=== PATIENT | male | born 1935 | race Caucasian/White ===

== ENCOUNTER 2020-01-28 13:53 | Observation (INO) | payer MEDICARE, BC, SELFPAY ==
[2020-01-28] VITALS (18 sets, daily range): BP systolic 104–152; BP diastolic 62–93; PULSE 56–70; RESP 0–18; TEMP 36.8; O2SAT 96–100; BMI 32.8
--- NOTE | ~2020-01-28 | CT_ITS ---
EXAMINATION: CT brain wo con, CT cervical spine wo con EXAM DATE: 01/28/2020 14:51 (accession [id number]), 01/28/2020 14:52 (accession [id number]) INDICATION: Syncope. Head injury. Squamous cell cancer. TECHNIQUE: Spiral CT of the head was performed without contrast. Axial, coronal and sagittal images were reviewed. Spiral CT of the cervical spine was performed without contrast. Axial images were rev iewed. Coronal and sagittal reformatted images were also reviewed. The dose-length product (DLP) fo r this examination was 605.33 (accession [id number]), 487.79 (accession [id number]) mGy-cm. The exposure was tailored according to patient size, and iterative reconstruction (ASIR) was used as additional dose reduction technique. There is no prior study for comparison. FINDINGS: HEAD CT: There is no acute intraparenchymal hemorrhage. No evidence of intraparenchymal brain mass l esion. No evidence of acute infarction. There is mild periventricular and subcortical hypodensity, n onspecific but probably related to small vessel ischemic disease. There is mild to moderate promine nce of the sulci and ventricles related to cerebral atrophy. There is intracranial carotid arterios clerosis. There is no mass effect or midline shift. There is no obstructive hydrocephalus suspected . There are no extra-axial collections. There are no acute calvarial fractures. The orbits are unr emarkable. Possible small right posterior vertex scalp contusion. Left mastoid effusion. Punctate o ld left caudate head lacunar infarction. CERVICAL CT: There is no evidence of acute cervical fracture. The odontoid process is intact. Pre-d ens space is normal. Prevertebral soft tissue is normal. There are no soft tissue abnormalities familia ntified. There is no disc space widening or traumatic vertebral body subluxation suspected. There i s moderate disc disease at C5-6 and 6-7 with significant uncovertebral joint arthropathy. Significant left facet joint arthropathy at C4-5, right facet arthropathy at C2-3. A detailed level by level ev aluation of spondylosis can be added as addendum if requested. IMPRESSION: 1. No acute intracranial or cervical findings. 2. Possible small posterior vertex scalp contusion. 3. Old punctate left caudate head lacunar infarction. 4. Cervical spondylosis. Reviewed, dictated and finalized at location A. RETTE TIPPER IMPRESSION: 1. No acute intracranial or cervical findings. 2. Possible small posterior vertex scalp contusion. 3. Old punctate left caudate head lacunar infarction. 4. Cervical spondylosis.
--- NOTE | ~2020-01-28 | XR_ITS ---
EXAMINATION: XR shoulder LT min 2V EXAM DATE: 01/28/2020 14:54 INDICATION: Initial encounter following injury, with pain of the left shoulder. TECHNIQUE: The following left shoulder projections obtained: frontal projection with internal rotatio n, frontal projection with external rotation, Grashey, and scapular Y view (4+ views). There is no p rior study for comparison. FINDINGS: There are old left sixth and seventh rib fractures posterolaterally. There is moderate nidhi ohumeral and acromioclavicular joint primary osteoarthritis. No evidence of left shoulder rotator cuf f calcific tendinosis. There are no acute fractures or dislocations identified. There is no subcuta neous gas. The soft tissue is unremarkable. Left neck surgical clips. IMPRESSION: No acute osseous findings. Reviewed, dictated and finalized at location A. R LINE REPAIRER IMPRESSION: No acute osseous findings.
--- NOTE | ~2020-01-28 | XR_ITS ---
EXAMINATION: XR pelvis 1-2V EXAM DATE: 01/28/2020 14:54 INDICATION: Fall, pelvic pain. TECHNIQUE: Pelvis frontal projection(s) obtained and reviewed. There is no prior study for compariso n. FINDINGS: Bilateral hip replacements. Hardware is intact. There are no acute fractures or dislocatio ns identified. Sacrum, sacroiliac joints, sacral arcuate lines are intact. There is no subcutaneous gas. There are arterial calcifications, arteriosclerosis. L4-5 fusion hardware. IMPRESSION: No acute osseous findings. Intact hip arthroplasties. Reviewed, dictated and finalized at location A. R TIER
--- NOTE | ~2020-01-28 | XR_ITS ---
EXAMINATION: XR chest 1V EXAM DATE: 01/28/2020 14:54 INDICATION: Fall. Left upper chest pain. TECHNIQUE: Frontal and lateral projections of the chest obtained and reviewed. There is no prior madelin dy for comparison. FINDINGS: The lungs are clear. There are no pleural effusions. The cardiomediastinal silhouette is within normal limits. There is no pneumothorax suspected. Mild to moderate bony degenerative change s. Right-sided portacatheter, line intact. IMPRESSION: No acute cardiopulmonary findings. Reviewed, dictated and finalized at location A. COVERER
--- NOTE | ~2020-01-28 | XR_ITS ---
EXAMINATION: XR hand LT min 3V EXAM DATE: 01/28/2020 14:54 INDICATION: Initial encounter following injury, with pain of the left hand. Fall. TECHNIQUE: Left hand frontal, lateral and oblique projections obtained and reviewed. There is no jenn or study for comparison. FINDINGS: Left metacarpal bones are unremarkable. There are no acute fractures or dislocations ident ified. There is no subcutaneous gas. There are arterial calcifications, arteriosclerosis. Ring an d watch. There is moderate polyarticular primary osteoarthritis. There may be partial scapholunate di ssociation. There is ulnar minus variance. IMPRESSION: Chronic findings as above. Reviewed, dictated and finalized at location A. AL WORK MANAGER IMPRESSION: Chronic findings as above.
--- NOTE | ~2020-01-28 | US_ITS ---
EXAMINATION: US carotid duplex BI DATE: 01/29/2020 10:40 INDICATION: Syncope. TECHNIQUE: Grayscale, color Doppler, and pulsed Doppler images of the cervical carotid arteries were obtained. The degree of vessel stenosis is placed in one of the following categories: normal, <50%, 5 0-69%, >=70% but less than near-occlusion, near-occlusion, or total occlusion. Note that percent sten osis relative to normal distal artery lumen diameter is indirectly measured from velocity measurement s as described by Alen, et al. Radiology 2003; 229:340-346. Notes: Normal: Peak systolic velocity <125 centimeters/sec and no plaque <50%. Peak systolic velocity <125 ( EDV <40; ICA/CCA PSV ratio <2.0; used these factors only a tandem lesions or low cardiac output or co ntralateral disease) 50-69 %: PSV 125-230 (EDV 40-100; ratio 2-4) >= 70% but less than near occlusion: PSV greater than 230 (EDV > 100; ratio> 4.0) Near Occlusion: PSV that is variable; markedly narrowed lumen Occlusion: Absent flow on color/spectral Doppler and no lumen on arizmendi scale. COMPARISON: None. FINDINGS: RIGHT: The right common carotid artery (CCA) peak systolic velocity (PSV) is 97 cm/s. The right internal car otid artery (ICA) PSV is 114 cm/s. The right ICA end-diastolic velocity (EDV) is 18 cm/s. The right I CA/CCA PSV ratio is 1.2. The external carotid artery (ECA) PSV is 164 cm/s. There is antegrade flow i n the right vertebral artery. LEFT: The left CCA PSV is 116 cm/s. The left ICA PSV is 102 cm/s. The left ICA EDV is 14 cm/s. The left ICA /CCA PSV ratio is 0.9. The ECA PSV is 236 cm/s. There is antegrade flow in the left vertebral artery . IMPRESSION: 1. Less than 50% stenosis in the right internal carotid artery by sonographic criteria. 2. Less than 50% stenosis in the left internal carotid artery by sonographic criteria. Reviewed, dictated and finalized at location A. IMPRESSION: 1. Less than 50% stenosis in the right internal carotid artery by sonographic kiko rojo. 2. Less than 50% stenosis in the left internal carotid artery by sonographic benny gipson.
--- NOTE | 2020-01-28 14:10 | ED_ITS ---
I attest that this documentation has been prepared under the direction and in the presence of Dick Garay DO. Lesinksi, Jacob D., Regine 01/28/20;14:10 HPI - Fall General Stated Complaint: syncopal episode Time Seen by Provider: 01/28/20 14:09
--- NOTE | 2020-01-28 14:11 | ED.SYNCOPE ---
HPI - Syncope General Chief Complaint: Syncope Stated Complaint: syncopal episode Time Seen by Provider: 01/28/20 14:09 Source: patient and family (Daughter) Mode of arrival: EMS Limitations: no limitations History of Present Illness HPI narrative: The pt is an 84 y/o male who presents to the ED, via EMS, c/o syncope x2 onset today. Pt states that he first fell when his walker collapsed while going [place] the racetrack. Pt's daughter states that he became unresponsive twice for a couple of seconds each time. Pt also experienced vomiting when he was brought back to the first aid room. Pt reports left shoulder pain. 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 He also has a Port-A-Cath. MD complaint: other (Syncope x2) -: second(s) (a couple of seconds for each episode) Prodromal symptoms: none Witnessed: Yes - by Other (Family ) Context: other (Fell) Injuries sustained associated with event: LUE (Left shoulder) Current symptoms: other (Left shoulder pain, vomiting (Resolved, per pt's daughter)) Related Data Allergies Allergy/AdvReac Type Severity Reaction Status Date / Time Penicillins Allergy Rash Verified 01/28/20 14:24 Review of Systems Review of Systems: All systems reviewed & are unremarkable except as noted in HPI and below Gastrointestinal: Gastrointestinal: Reports vomiting (Resolved, per pt's daughter) Musculoskeletal: Musculoskeletal: Reports arthralgias (Left shoulder) Neurologic: Reports syncope (x2, Resolved) [facility] Past Medical History Medical History (Updated 01/28/20 @ 18:08 by Dick Garay DO) Cancer Mastoid bone Port-A-Cath in place Surgical History Surgical History (Updated 01/28/20 @ 14:43 by Luiz Mccurdy) History of surgery for malignant neoplasm Port-A-Cath placement Social History Social History (Updated 01/28/20 @ 14:43 by Luiz Mccurdy) Smoking status: Unknown if ever smoked Exam Narrative: Exam Narrative: APPEARANCE: No acute distress, nontoxic, resting in bed EYES: EOMI HEENT: Normocephalic, atraumatic, scarring over left side of face Neck: Supple no midline tenderness palpation, tender palpation over left paravertebral muscle C5-7 RESPIRATORY: No respiratory distress Clear to auscultation bilaterally with no rhonchi wheezing or rales. CARDIOVASCULAR: Regular rate and rhythm without murmurs rubs or gallops. ABDOMINAL: Soft, nontender, nondistended, no rebound or guarding MUSCULOSKELETAl: Moves all extremities. No clubbing, cyanosis or edema. Tender to palpation over the left anterior lateral shoulder with no swelling or ecchymosis, pain with flexion or abduction greater than 45 degrees, no tenderness of the elbow or wrist, radial pulse 2+, neurovascular intact NEURO: Awake and alert. Following commands, speech normal, no focal deficits SKIN:: Warm, dry. No rashes lesions superficial abrasions over the dorsal aspect of the left hand y, Course Course Emergency Course: Family is present. They specifically state the patient's walker broke and he had no initial syncopal episode did not have an episode of loss of consciousness when he fell patient subsequently though did have 2 episodes of syncope 1 once they got him back up and then the second was he got to the medical tent Discussed with patient and family results of workup and diagnosis. Discussed need for admission. Patient and family understand and agree to current treatment plan Consultations Consultation #1: Discussed case with Sarina Stokes PA-C, who accepted admission. Date: 01/28/20 Time: 17:18 Vital Signs Vital signs: Vital Signs Pulse Rate 64 01/28/20 14:07 Respiratory Rate 8 L 01/28/20 14:07 Pulse Oximetry 99 01/28/20 14:07 Pulse Rate 64 01/28/20 17:31 Respiratory Rate 15 01/28/20 17:31 Blood Pressure 149/93 H 01/28/20 17:31 Pulse Oximetry 100 01/28/20 17:31 MDM - Syncope Lab Data Result diagrams:
--- NOTE | 2020-01-28 14:14 | ECG_ITS ---
Measurements Intervals [place] Rate: 59 P: 53 WI: 171 QRS: -4 QRSD: 94 T: 34 QT: 408 QTc: 407 Interpretive Statements SINUS BRADYCARDIA CONSIDER INFERIOR INFARCT, AGE INDETERMINATE BASELINE ARTIFACT- II, III, AVF ABNORMAL ECG Electronically Signed On 01-29-2020 8:12:28 CDT by Cristian Cam D.O.
[2020-01-28] MEDS: SODIUM CHLORIDE 0.9% IV 1,000 ML 999 ML IV CONT (15:22)
[2020-01-28 15:28] LABS: Basophils Absolute Auto 0.1 K/mm3 (0.0-0.1); Basophils Percent Auto 0.6 % (0.2-1.2); Eosinophils Absolute Auto 0.1 K/mm3 (0-0.3); Eosinophils Percent Auto 0.8 % (0-4.4); Hematocrit 42.3 % (42.0-52.0); Hemoglobin 13.8 g/dL (14.0-18.0); Immature Granulocyte Absolute 0.06 K/mm3 (0.00-0.031); Immature Granulocyte Percent A 0.6 % (0-0.5); Lymphocytes Absolute Auto 1.29 K/mm3 (0.9-3.2); Lymphocytes Percent Auto 13.7 % (18.3-44.2); Mean Corpuscular HGB Conc 32.6 g/dl (32-36); Mean Corpuscular Hemoglobin 30.1 pg (26-34); Mean Corpuscular Volume 92.4 fl (80-100); Mean Platelet Volume 10.8 fl (7.4-10.4); Monocytes Percent Auto 10.2 % (2.6-8.5); Neutrophils Percent Auto 74.1 % (45.5-73.1); Platelet Count Result 212 k/mm3 (150-375); Red Blood Count 4.58 M/mm3 (4.6-6.20); Red Cell Distribution Width 12.9 % (11.5-14.5); White Blood Count 9.5 K/mm3 (4.5-10.0)
[2020-01-28 15:34] LABS: Add Urine Microscopic? YES; Appearance Urine Clear (Clear); Bacteria Urine Trace /hpf; Bilirubin Urine Negative (Negative); Blood Urine Negative (Negative); Color Urine Yellow (Yellow); Glucose Urine UA Negative (Negative); Ketones Urine Negative (Negative); Leukocyte Esterase Ur Negative LEU/UL (Negative); Mucus Urine Rare /lpf; Nitrate Urine Negative (Negative); Protein Urine 1+ mg/dL (Negative); RBC Urine 0-2 /hpf (0-2); Specific Grav Ur 1.017 (1.001-1.035); Squamous Epithelial Cell Urine Rare /hpf (Few); WBC Urine 0-3 /hpf
[2020-01-28 15:38] LABS: INR 1.1; Prothrombin Time 13.5 Seconds (11.1-14.7)
[2020-01-28 15:39] LABS: Partial Thromboplastin Time 27.1 SECONDS (22.3-36.8)
[2020-01-28 15:42] LABS: Alanine Aminotransferase 19 U/L (4-50); Albumin Level 3.9 g/dL (3.5-5.1); Alkaline Phosphatase 87 U/L (38-126); Aspartate Amino Transferase 26 U/L (17-59); Bilirubin,Total 0.4 mg/dL (0.2-1.3); Blood Urea Nitrogen 29 mg/dL (9-20); Calcium 8.5 mg/dL (8.4-10.2); Carbon Dioxide 27 mmol/L (22-30); Chloride 95 mmol/L (98-107); Estimated CRCL calculation 32 ml/min; Estimated Glomerular Filt Rate 34; Glucose 143 mg/dL (75-110); Sodium 134 mmol/L (137-145)
[2020-01-28 15:45] LABS: Potassium 4.5 mmol/L (3.4-5.0)
[2020-01-28 15:51] LABS: Troponin I < 0.012 ng/mL (0.000-0.034)
--- NOTE | 2020-01-28 19:03 | PC.NURSE ---
This patient, Fan Florian, was admitted to 2 Medical Room 249-01. Patient/family oriented to hospital policies and general routines including ID bracelet, bed and alarms, visiting hours, pain management, procedures, bathroom and other care routines, personal items, smoking policy, room service/diet, and visiting hours. Valuables list has been completed. Information on how to activate the Rapid Response Team has been discussed. Patient/Family are encouraged to report perceived risks to care and to ask questions if they do not understand what they are told or what they should do.
[2020-01-28] MEDS: SODIUM CHLORIDE 0.9% IV 1,000 ML 80 ML IV CONT (20:06)
[2020-01-28 20:47] LABS: Troponin I < 0.012 ng/mL (0.000-0.034)
[2020-01-29] VITALS (9 sets, daily range): BP systolic 120–169; BP diastolic 60–80; PULSE 63–72; RESP 16–18; TEMP 36.1–36.7; O2SAT 96–98
[2020-01-29 00:01] LABS: Troponin I < 0.012 ng/mL (0.000-0.034)
--- NOTE | 2020-01-29 03:01 | PC.NURSE ---
Daylight Savings Time For Daylight Savings Time Ending in the Fall - Clocks are moved back. For Daylight Savings Time Beginning in the Spring - Clocks are moved ahead. For [facility], the time of change occurs at 0200 hrs. Time is taken from the sql server architect. This entry on the patient's chart recognizes the change in time reflected during documentation. Example: 2 entries for vital signs may be charted for 0200 hrs.
[2020-01-29 05:50] LABS: Basophils Percent Auto 0.4 % (0.2-1.2); Eosinophils Absolute Auto 0.2 K/mm3 (0-0.3); Hematocrit 40.6 % (42.0-52.0); Hemoglobin 13.2 g/dL (14.0-18.0); Immature Granulocyte Absolute 0.05 K/mm3 (0.00-0.031); Immature Granulocyte Percent A 0.5 % (0-0.5); Lymphocytes Absolute Auto 2.43 K/mm3 (0.9-3.2); Lymphocytes Percent Auto 24.5 % (18.3-44.2); Mean Corpuscular HGB Conc 32.5 g/dl (32-36); Mean Corpuscular Hemoglobin 29.8 pg (26-34); Mean Corpuscular Volume 91.6 fl (80-100); Mean Platelet Volume 10.8 fl (7.4-10.4); Monocytes Absolute Auto 1.2 K/mm3 (0.1-0.6); Monocytes Percent Auto 12.3 % (2.6-8.5); Neutrophils Percent Auto 60.3 % (45.5-73.1); Platelet Count Result 215 k/mm3 (150-375); Red Blood Count 4.43 M/mm3 (4.6-6.20); Red Cell Distribution Width 12.5 % (11.5-14.5); White Blood Count 9.9 K/mm3 (4.5-10.0)
[2020-01-29 05:59] LABS: Alanine Aminotransferase 17 U/L (4-50); Albumin Level 3.6 g/dL (3.5-5.1); Alkaline Phosphatase 83 U/L (38-126); Aspartate Amino Transferase 23 U/L (17-59); Bilirubin,Total 0.5 mg/dL (0.2-1.3); Blood Urea Nitrogen 26 mg/dL (9-20); Calcium 8.4 mg/dL (8.4-10.2); Carbon Dioxide 26 mmol/L (22-30); Chloride 99 mmol/L (98-107); Estimated CRCL calculation 35 ml/min; Estimated Glomerular Filt Rate 39; Glucose 123 mg/dL (75-110); Potassium 4.2 mmol/L (3.4-5.0); Sodium 133 mmol/L (137-145)
--- NOTE | 2020-01-29 08:17 | PM.IMHP ---
H&P: HPI History of Present Illness Chief complaint: SYNCOPE,LEFT SHOULDER CONTUSION Narrative: Fan Florian is a 84 year old male here for syncopal episode found to have acute kidney injury. Patient is currently undergoing cancer treatment for his left mastoid cancer. He is being seen at [facility]. This was diagnosed over a year ago. He had surgery then underwent radiation last summer for about 60 treatments. Around last fall, he had recurrence. He has not been on chemotherapy agents prior to this but states over the past week, he was started on new IV medication for his cancer. Patient has noted decreased appetite recently. He denies any lightheadedness with standing. No complaints of chest pain or palpitations recently. No cough shortness of breath. No recent nausea, vomiting or diarrhea. No symptoms of dysuria, hematuria or urine retention. No numbness, tingling or weakness in his arms or legs. He does use a walker to ambulate because of chronic back pain. 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 There is plans to put a weight in the left eyelid at [place]. He is currently using a patch to the left eye as well as eye drops. No history of coronary disease, hyperlipidemia, thyroid disease or diabetes. He does have sleep apnea that is untreated. Also has hypertension and is on a diuretic. [place] sitting on his walker when the walker collapsed. He was helped up and taken to the trainers office for medical care. He was complaining of left shoulder pain. When he sat down in the trainers office, he had a brief episode of syncope. He was only out for a few seconds but stated that people noted that he was ?snoring?. After he came to, he was given glass water which he drank but then had a small amount of emesis. He had a 2nd episode where he had a brief syncopal episode again lasting only few seconds. Denies any head trauma from the fall. Because this reason patient was brought to the emergency room for evaluation. In the emergency room, he was hemodynamically stable. Multiple images were obtained including a left shoulder x-ray, pelvic x-ray, chest x-ray, left hand x-ray, CT of the brain and cervical spine CT all which showed no acute findings. He does have an old left caudate lacunar infarct. BUN 29 and Cr 1.9. No hx of renal disease. Patient was started on IV fluids and admitted for further care. Review of Systems Review of Systems: All systems reviewed & are unremarkable except as noted in HPI and below PMFSH Past Medical History Medical History (Updated 01/29/20 @ 09:08 by Ananda David MD) Martinez's palsy Left Cancer Mastoid bone Essential hypertension, benign History of CVA (cerebrovascular accident) noted incidental on CT brain January 2020 Hx of squamous cell carcinoma of skin face, arms, hands HIRAM (obstructive sleep apnea) Port-A-Cath in place Surgical History Surgical History (Updated 01/29/20 @ 08:48 by Ananda David MD) History of surgery for malignant neoplasm Port-A-Cath placement Hx of lumbosacral spine surgery Hx of tonsillectomy 6yo Hx of total knee arthroplasty Right done 1999 and Left 2014 Family History Family History (Updated 01/28/20 @ 19:56 by María Waters RN) Father Cerebrovascular accident Social History Social History (Updated 01/29/20 @ 08:50 by Ananda David MD) Social History: Patient is a lifelong nonsmoker. Patient is living with his daughter and son-in-law as he is getting treatment for his cancer. He is originally from [place] [facility]. 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 He was in [employer] for [employer] when he was younger. He denies alcohol or drug use. He wishes to be a DNR but currently listed as a full code. Was encouraged to discuss this with his daughter Smoking status: Never smoker Alcohol intake: never Substance use:
[2020-01-29] MEDS: SODIUM CHLORIDE 0.9% IV 1,000 ML 80 ML IV CONT ×2 (09:29→20:29)
[2020-01-29] MEDS: ACETAMINOPHEN 325 MG TABLET 650 MG PO (09:36)
[2020-01-29] MEDS: AMLODIPINE BESYLATE 5 MG TABLET PO (11:08)
[2020-01-29] MEDS: NEOMYCIN/POLYMYXIN/BACITRACIN OINTMENT PACKET 1 PACKET (16:37)
[2020-01-30] VITALS: PULSE 74
[2020-01-30 04:00] VITALS: PULSE 77
[2020-01-30 05:43] LABS: Albumin Level 3.5 g/dL (3.5-5.1); Blood Urea Nitrogen 22 mg/dL (9-20); Calcium 8.2 mg/dL (8.4-10.2); Carbon Dioxide 27 mmol/L (22-30); Chloride 101 mmol/L (98-107); Estimated CRCL calculation 38 ml/min; Estimated Glomerular Filt Rate 41; Glucose 122 mg/dL (75-110); Phosphorus 3.4 mg/dL (2.5-4.5); Potassium 4.2 mmol/L (3.4-5.0); Sodium 135 mmol/L (137-145)
[2020-01-30 06:11] VITALS: BP 157/75; PULSE 72; RESP 16; TEMP 36.4; O2SAT 96
[2020-01-30 08:00] VITALS: PULSE 78
[2020-01-30 08:00] LABS: Free T4 Free Thyroxine Reflex 0.98 ng/dL (0.78-2.19)
[2020-01-30] MEDS: SODIUM CHLORIDE 0.9% IV 1,000 ML 80 ML IV CONT (08:07)
[2020-01-30] MEDS: AMLODIPINE BESYLATE 5 MG TABLET PO (08:10)
--- NOTE | 2020-01-30 09:00 | ECHO_ITS ---
Patient Info Name: Fan Florian Age: 84 years : 1935 Gender: Male Ht: 70 in Wt: 229 lbs BSA: 2.30 m2 HR: 82 bpm BP: 157 / 75 mmHg Heart Rhythm: Sinus Rhythm Technical Quality: Fair, Good Exam Date: 01/30/2020 9:30 AM Exam Location: [facility] Patient Status: Inpatient Admit Date: 01/28/2020 Staff Ordering Physician: Ananda David MD Hand Zipper Trimmer: Hollis Sykes RDCS Attending Provider: Ananda David MD Exam Type: CA echo dop color flow w con Study Info Indications R01.1 - Cardiac murmur, unspecified Complete two-dimensional, color flow and Doppler transthoracic echocardiogram is performed with contrast to opacify the left ventrical and to improve the deliniation of the left ventrical endocarial boarders. Contrast/Agitated Saline Contrast/Ag. Saline: Definity Amount: 1.00 ml Administered By: Arabella Terrell RN Existing IV Access: Yes History/Risk Factors Murmur; HTN, syncope. Summary 1. Left ventricular systolic function is normal, estimated at 60-65%. 2. Definity contrast injected to improve visualization. 3. There is mild aortic valve stenosis with a peak velocity of 301.50 cm/s, mean gradient of 18 mmHg, and aortic valve area of 1.60 cm2. Left Ventricle Left ventricular chamber dimension is normal. Left ventricular systolic function is normal, estimated at 60-65%. The left ventricular diastolic function is normal. Definity contrast injected to improve visualization. Right Ventricle Right ventricular chamber dimension is normal. Left Atria Left atrial chamber dimension is mildly enlarged. Right Atria Right atrial chamber dimension is normal. Aortic Valve The aortic valve is trileaflet. There is moderate aortic valve sclerosis. There is mild aortic valve stenosis with a peak velocity of 301.50 cm/s, mean gradient of 18 mmHg, and aortic valve area of 1.60 cm2. Pulmonic Valve The pulmonic valve is not well visualized. Mitral Valve The mitral valve has normal leaflets and calcified annulus. Tricuspid Valve The tricuspid valve leaflets are not well visualized. Pericardium/Pleural The pericardium appears normal. Aorta The aortic root size at the sinus of Valsalva is normal. Left Ventricular Outflow Tract Name Value Normal LVOT 2D LVOT Diameter 2.05 cm LVOT Doppler LVOT Peak Gradient 6 mmHg LVOT Mean Gradient 3 mmHg LVOT VTI 23.81 cm LVOT VTI/AV VTI Ratio 0.40 LVOT Stroke Volume 78.63 ml LVOT CO 5.79 l/min LVOT CI 2.52 L/min/m2 Mitral Valve Name Value Normal MV Doppler MV [place] 238.15 cm/s2 MV PHT
[2020-01-30] MEDS: PERFLUTREN LIPID MICROSPHERES 1.5 ML VIAL DILUTED TO 10 ML TOTAL VOLUME IV PUSH (10:00)
[2020-01-30 12:00] VITALS: PULSE 83
[2020-01-30 14:00] VITALS: BP 143/80; PULSE 81; RESP 19; TEMP 36.6; O2SAT 99
[2020-01-30] MEDS: ACETAMINOPHEN 325 MG TABLET 650 MG PO (15:11)
--- NOTE | 2020-01-30 15:15 | PM.DS ---
DS: Diagnosis Discharge Diagnosis (1) Acute renal insufficiency: Code(s): N28.9 - Disorder of kidney and ureter, unspecified Status: Acute Assessment and Plan: Creatinine on admission is 1 9. No baseline to compare. Patient has no history of renal failure. He is on a diuretic and JONNY-inhibitor which, coupled with his poor oral intake, probably is contributing to his pre renal acute kidney injury. With IV fluids, creatinine 1.6 today. (2) Syncope: Code(s): R55 - Syncope and collapse Status: Acute Assessment and Plan: Patient had 2 brief episodes of syncope that was witnessed. CT the brain CT cervical no acute findings. Doubt this is seizure. More likely related to the pain from the left shoulder. Suspect the dehydration and renal failure contributed to this as well. He does have a murmur so we proceeded with echocardiogram. EKG is normal. Echo showing EF 60-65% and mild aortic stenosis. Carotid ultrasound showed less than 50% stenosis of bilateral bilateral internal carotid arteries (3) Contusion of left shoulder: Code(s): S40.012A - Contusion of left shoulder, initial encounter Status: Acute Assessment and Plan: No obvious fractures by x-ray. He probably has a soft tissue injury from the fall. Ice to the left shoulder. Left shoulder pain better. Continue to use ice pack. (4) Essential hypertension, benign: Code(s): I10 - Essential (primary) hypertension Status: Acute Assessment and Plan: Blood pressure was low normal on admission. Unclear if they did orthostatic vital signs in the emergency room. Since admission, patient's blood pressure has climbed to 169/80 and Amlodipine added. We held his hydrochlorothiazide and lisinopril. BP became better controlled. (5) Cancer: Code(s): C80.1 - Malignant (primary) neoplasm, unspecified Status: Acute Assessment and Plan: Patient with left mastoid cancer currently undergoing treatment at [facility] [place]. CBC within normal limits. No significant myelosuppression noted. (6) HIRAM (obstructive sleep apnea): Code(s): G47.33 - Obstructive sleep apnea (adult) (pediatric) Status: Acute Assessment and Plan: Patient has sleep apnea but unable to wear the mask because of his ongoing mastoid cancer. (7) Martinez's palsy: Code(s): G51.0 - Martinez's palsy Status: Acute Assessment and Plan: Noted. Patient is being managed for this at [place]. DS: Summary Hospital Course Reason for hospitalization: 84yo male here for syncopal episode. Please see H&P for details. Hospital Course: As above Time Spent with Patient Time attestation: Total time spent providing and/or coordinating discharge services:32 minutes Time spent: Greater than 30 minutes Exam Narrative: Exam Narrative: Gen - NARD Chest - CTA bilaterally, nml RR CV - RRR S1/S2, 2/6 systolic murmur Abd - Soft, NT/ND, Positive BS Ext - No pedal edema. Psych - Nml mood and affect Skin -small dry abrasions noted on left hand. Left postauricular dressing small serosanguineous staining DS: Data Data Completed and Pending Labs on day of discharge: Labs from last 24 hours 01/30/20 01/30/20 01/30/20 05:20 05:20 05:20 Sodium Potassium Chloride Carbon Dioxide BUN Creatinine Estim Creat Clear Calc Estimated GFR Glucose Calcium Phosphorus Albumin TSH (Reflex) 4.360 Free T4 0.98 Total T3 1.00 01/30/20 05:19 Sodium 135 L Potassium 4.2 Chloride 101 Carbon Dioxide 27 BUN 22 H Creatinine 1.60 H Estim Creat Clear Calc 38 Estimated GFR 41 L Glucose 122 H Calcium 8.2 L Phosphorus 3.4 Albumin 3.5 TSH (Reflex) Free T4 Total T3 Preliminary micro results at discharge 01/28/20 20:20 Blood Culture - Preliminary Blood 01/28/20 20:20 Blood Culture - Preliminary Blood Discharge Plan Disch
[2020-01-30] MEDS: HEPARIN SOD FLUSH 500 UNITS/5 ML SYRINGE IV PUSH (15:49)
--- NOTE | 2020-02-08 12:50 | PC.NURSE ---
Blood cx is negative. Dr. Joann pendleton.
== END 2020-01-30 16:25 | disposition home or self-care (01) ==
LOC: ANHED 18:08 → ANH2MED 18:21
PROVIDERS: Admitting Provider Internal Medicine; Emergency Provider Emergency Medicine; Visit Provider Internal Medicine
DX: N28.9 Disorder of kidney and ureter, unspecified (principal); R55 Syncope and collapse; E86.0 Dehydration; S40.012A Contusion of left shoulder, initial encounter; S60.512A Abrasion of left hand, initial encounter; W18.39XA Other fall on same level, initial encounter; I10 Essential (primary) hypertension; C41.0 Malignant neoplasm of bones of skull and face; G47.33 Obstructive sleep apnea (adult) (pediatric); G51.0 Bell's palsy; Z66 Do not resuscitate; Z79.899 Other long term (current) drug therapy; Z86.73 Personal history of transient ischemic attack (TIA), and cerebral infarction without residual deficits; Z85.828 Personal history of other malignant neoplasm of skin; Z88.0 Allergy status to penicillin; Z95.828 Presence of other vascular implants and grafts; Z96.643 Presence of artificial hip joint, bilateral; Z96.653 Presence of artificial knee joint, bilateral
CPT/HCPCS: 36415; 70450; 71045; 72125; 72170; 73030; 73130; 80053; 80069; 81001; 84439; 84443; 84480; 84484; 85025; 85610; 85730; 87040; 93005; 93880; 96360; 96361; 96374; 97161; 97165; 99285; A9270; C8929; G0378; J1642; J7030; Q9957